=== PATIENT | male | born 1965 | race Caucasian/White ===

== ENCOUNTER 2018-11-20 09:08 | Inpatient (IN) | payer OTHER ==
[2018-11-20 10:10] VITALS: BMI 29.5
--- NOTE | 2018-11-20 13:53 | HP ---
COWS - Scale Resting Pulse: 0= [place] 80 or Below Sweatin=Flushed/Facial Moisture Restless Observation: 0= Sits Still Pupil Size: 0= Normal to Room Light Bone or Joint Aches: 1= Mild Discomfort Runny Nose/ Eye Tearin= Nasal Congestion GI Upset > 30mins: 1= Stomach Cramp Tremor Observation: 1= Tremor Onia, Not Seen Yawning Observation: 2= >3x During Session Anxiety or Irritability: 1=Feels Anxious/Irritable Goose Flesh Skin: 0=Smooth Skin COWS Score: 9 CIWA Score - Admission Criteria OASAS Guidelines: Admission for Medically Managed Detox: Requires at least one of the followin. CIWA greater than 12 2. Seizures within the past 24 hours 3. Delirium tremens within the past 24 hours 4. Hallucinations within the past 24 hours 5. Acute intervention needed for co occurring medical disorder 6. Acute intervention needed for co occurring psychiatric disorder 7. Severe withdrawal that cannot be handled at a lower level of care (continued vomiting, continued diarrhea, abnormal vital signs) requiring intravenous medication and/or fluids 8. Admission [facility] Chief Complaint: I want detox Allergies/Adverse Reactions: Allergies Allergy/AdvReac Type Severity Reaction Status Date / Time No Known Allergies Allergy Verified 11/20/18 11:47 History of Present Illness: 53 y/o male with a long history of heroin addiction presents here for detox. This is pt's first visit but states he had been in other detox centers previously. Utox positive for fentanyl but pt states it must have been laced with his heroin. Hx of Hep C, Hyperthyroidism (states he has not used his med for a month), homelessness. Denies psych hx. Denies past nor current SI/HI Exam Limitations: No Limitations - Ebola screening Have you traveled outside of the country in the last 21 days: No (N) Have you had contact with anyone from an Ebola affected area: No Have you been sick,other than usual withdrawal symptoms: No Do you have a fever: No - Review of Systems Constitutional: No Symptoms Reported EENT: reports: No Symptoms Reported, Dental Problems (missing teeth) Respiratory: reports: No Symptoms reported Cardiac: reports: No Symptoms Reported GI: reports: Abdominal cramping : reports: No Symptoms Reported Musculoskeletal: reports: Back Pain Integumentary: reports: No Symptoms Reported Neuro: reports: No Symptoms reported Endocrine: reports: No Symptoms Reported Hematology: reports: No Symptoms Reported Psychiatric: reports: Orientated x3, Depressed Other Systems: Reviewed and Negative Patient History - Patient Medical History Hx Anemia: No Hx Asthma: No Hx Chronic Obstructive Pulmonary Disease (COPD): No Hx Cancer: No Hx Cardiac Disorders: No Hx Congestive Heart Failure: No Hx Hypertension: No Hx Hypercholesterolemia: No Hx Pacemaker: No HX Cerebrovascular Accident: No Hx Seizures: No Hx Diabetes: No Hx Gastrointestinal Disorders: No Hx Liver Disease: No Hx Genitourinary Disorders: No Hx Sexually Transmitted Disorders: No Hx Renal Disease (ESRD): No Hx Thyroid Disease: Yes (not compliant with meds) Hx Human Immunodeficiency Virus (HIV): No Hx Hepatitis C: Yes (Not treated) Hx Depression: No Hx Suicide Attempt: No (denies ) Hx Bipolar Disorder: No Hx Schizophrenia: No - Patient Surgical History Past Surgical History: No Hx Neurologic Surgery: No Hx Cataract Extraction: No Hx Cardiac Surgery: No Hx Lung Surgery: No Hx Breast Surgery: No Hx Breast Biopsy: No Hx Abdominal Surgery: No Hx Appendectomy: No Hx Cholecystectomy: No Hx Genitourinary Surgery: No Hx Section: No Hx Orthopedic Surgery: No Hx Hysterectomy: No Anesthesia Reaction: No - PPD History Documented Results: Negative w/o proof Implanted On Prior [facility] Admission?: No PPD to be Administered?: Yes - Reproductive History Patient is a Female of Child Bearing Age (11 -55 yrs old): No - Smoking Cessation Smoking history: Current every day smoker Have you smoked in the past 12 months: Yes Aproximately how many cigarettes per day: 10 Initiated information on smoking cessation: Yes 'Breaking Loose' booklet given: 11/20/18 - Substance & Tx. History Hx Alcohol Use: No Hx Substance Use: Yes Substance Use Type: Cocaine, Heroin Hx Substance Use Treatment: Yes ([facility]) - Substances Abused Heroin Route: Injection Frequency: Daily Amount used: $100 Age of first use: 16 Date of Last Use: 11/19/18 Cocaine Route: Inhalation Frequency: Daily Amount used: $100 Age of first use: 16 Date of Last Use: 11/19/18 Family Disease History - Family Disease History Family History: Unremarkable Admission Physical Exam BHS - Vital Signs Vital Signs: Vital Signs - 24 hr 11/20/18 10:07 Temperature 97.8 F Pulse Rate 79 Respiratory 18 Rate Blood Pressure 124/57 L - Physical General Appearance: Yes: Mild Distress HEENTM: Yes: Within Normal Limits, Nasal Congestion Respiratory: Yes: Lungs Clear, No Respiratory Distress, No Accessory Muscle Use Neck: Yes: Trachea in good position, Other (track lowe to L anterior aspect) Breast: Yes: Breast Exam Deferred Cardiology: Yes: Within Normal Limits Abdominal: Yes: Normal Bowel Sounds, Non Tender, Distended Genitourinary: Yes: Within Normal Limits Back: Yes: Within Normal Limits Musculoskeletal: Yes: Within Normal Limits, full range of Motion, Gait Steady, Back pain Extremities: Yes: Normal Capillary Refill, Normal Inspection, Normal Range of Motion Neurological: Yes: Fully Oriented, Alert, Motor Strength 5/5, Normal Mood/Affect , Normal Response Integumentary: Yes: Normal Color, Warm Lymphatic: Yes: Within Normal Limits - Diagnostic (1) Opioid dependence with uncomplicated intoxication Current Visit: Yes Status: Acute (2) Cocaine dependence Current Visit: Yes Status: Chronic (3) History of hepatitis C Current Visit: Yes Status: Chronic (4) Hyperthyroidism Current Visit: Yes Status: Chronic (5) Nicotine dependence Current Visit: Yes Status: Chronic Cleared for Admission [facility] - Detox or Rehab [facility] Level of Care: Medically Managed Detox Regimen/Protocol: Methadone [facility] Breath Alcohol Content Breath Alcohol Content: 0 Urine Drug Screen - Results Drug Screen Negative: No Urine Drug Screen Results: SHREYA-Cocaine, OPI-Opiates, MTD-Methadone, FEN-Fentanyl Inpatient Rehab Admission - Rehab Decision to Admit Inpatient rehab admission?: No
[2018-11-20] MEDS ORDERED: IBUPROFEN 400 MG TABLET (FP) PO PRN (14:07)
[2018-11-20] MEDS ORDERED: MENTHOL/PHENOL 1 EACH UD MM PRN (14:07)
[2018-11-20] MEDS ORDERED: MAG HYDROX/AL HYDROX/SIMETH 30 ML UNIT-DOSE CUP PO PRN (14:07)
[2018-11-20] MEDS ORDERED: ACETAMINOPHEN 325 MG TABLET (FP) PO PRN (14:07)
[2018-11-20] MEDS ORDERED: LOPERAMIDE HCL 2 MG CAPSULE PO PRN (14:07)
[2018-11-20] MEDS ORDERED: MAGNESIUM HYDROX 2400MG/30ML ORAL SUSPENSION 30 ML CUP PO PRN (14:07)
[2018-11-20] MEDS ORDERED: diazePAM 5 MG TABLET PO PRN (14:07)
[2018-11-20] MEDS ORDERED: NICOTINE POLACRILEX 2 MG GUM BC PRN (14:07)
[2018-11-20] MEDS ORDERED: guaiFENesin/D-METHORPHAN HB 10 ML UNIT-DOSE CUPS PO PRN (14:07)
[2018-11-20] MEDS ORDERED: MAGNESIUM CITRATE 300 ML BOTTLE PO PRN (14:07)
[2018-11-20] MEDS ORDERED: P-EPHED 60MG/TRIPROLIDI 2.5MG TABLET PO PRN (14:07)
[2018-11-20] MEDS ORDERED: METHADONE HCL 10 MG TABLET (FOR DETOX USE ONLY) PO ONE ×2 (15:15→23:00)
[2018-11-20] MEDS: NICOTINE 21 MG/24 HOURS TOPICAL PATCH TD SCH (15:21)
--- NOTE | 2018-11-20 16:15 | PN ---
S Progress Note Note: Per RN, ppt stated he is PPD positive, Chest ray ordered
[2018-11-20] MEDS ORDERED: MELATONIN 5 MG TABLETS PO PRN (22:00)
[2018-11-20] MEDS ORDERED: THIAMINE HCL 100 MG TABLET (FP) PO SCH (22:00)
[2018-11-21 06:43] VITALS: TEMP 98.2
[2018-11-21 09:51] VITALS: BP 117/54; PULSE 68
[2018-11-21 09:55] LABS: HEMATOCRIT 33.1 % (35.4-49); HEMOGLOBIN 11.3 GM/dL (11.7-16.9); MCH 33.4 pg (25.7-33.7); MCHC 34.2 g/dl (32.0-35.9); MEAN CELL VOLUME 97.7 fl (80-96); MEAN PLT VOLUME 8.5 fl (7.5-11.1); PLATELET COUNT 205 K/MM3 (134-434); RBC 3.39 M/mm3 (4.00-5.60); WHITE BLOOD COUNT 5.5 K/mm3 (4.0-10.0)
[2018-11-21] MEDS ORDERED: PRENATAL VITAMINS W/ FOLIC ACID TABLET (FP) PO SCH (10:00)
[2018-11-21] MEDS ORDERED: METHADONE HCL 10 MG TABLET (FOR DETOX USE ONLY) PO ONE (10:00)
[2018-11-21 10:07] LABS: ALBUMIN 3.3 g/dl (3.4-5.0); ALK PHOS 50 U/L (45-117); ANION GAP 7 MMOL/L (8-16); BILIRUBIN,TOTAL 0.3 mg/dL (0.2-1); BLOOD UREA NITROGEN 10 mg/dL (7-18); CALCIUM 8.3 mg/dL (8.5-10.1); CHLORIDE 107 mmol/L (98-107); CO2 26 mmol/L (21-32); CREATININE 0.8 mg/dL (0.55-1.3); GLUCOSE,RANDOM 107 mg/dL (74-106); POTASSIUM 3.3 mmol/L (3.5-5.1); SGOT/AST 47 U/L (15-37); SGPT/ALT 37 U/L (13-61); SODIUM 141 mmol/L (136-145); TOT PROT 6.7 g/dl (6.4-8.2)
[2018-11-21] MEDS ORDERED: METHADONE HCL 10 MG TABLET PO SCH (10:15)
[2018-11-21] MEDS ORDERED: METHADONE 40 MG, METHADONE 10 MG PO SCH (10:50)
[2018-11-21] MEDS ORDERED: METHADONE HCL 10 MG TABLET ONE (11:02)
[2018-11-21] MEDS ORDERED: METHADONE HCL 40 MG DISPERSABLE TABLET ONE (11:02)
--- NOTE | 2018-11-21 11:04 | DS ---
[facility] Detox Discharge Summary Admission Date: 11/20/18 Discharge Date: 11/21/18 - History Present History: Cocaine Dependence, Opioid Dependence Additional Comments: PATIENT INITIALLY CAME IN TO [facility] ADMISSION YESTERDAY REQUESTING DETOX FROM [facility]. HOWEVER, PATIENT TODAY NOTES THAT HE HAS BEEN A CLIENT AT [facility] ([place], [place]) AND THAT HIS LAST DAY MEDICATED THERE WAS ON 11/13/2018 (NO INDICATION OF THIS WAS NOTED ON [facility] ADMISSIONS HISTORY AND PHYSICAL. WHEN ASKED, PATIENT ALSO REPORTS THAT HE WISHES TO RETURN THERE TO CONTINUE METHADONE MAINTENANCE GOING FORWARD. THEREFORE, THERE IS NO REASON FOR PATIENT TO REMAIN ON DETOX UNIT ANY FURTHER AT THIS TIME BECAUSE THERE ARE NO SUBSTANCES FOR HIM TO BE DETOXED FROM. PATIENT WILL BE GIVEN 50 MG PO OF METHADONE TODAY (DUE TO LENGTH OF TIME SINCE LAST MEDICATED AT [facility] ) AND THEN WILL BE DISCHARGED FROM DETOX UNIT AND REFERRED IMMEDIATELY BACK TO [facility] FOR FURTHER EVALUATION. WHILE ASSESSED THIS AM, PATIENT REPORTS PAIN ON THE RIGHT SIDE OF HIS TONGUE. VISUAL INSPECTION REVEALED AN ULCER, POSSIBLY A CNANCRE SORE. PRESCRIPTION FOR VALTREX PO AND FOR TOPICAL ANBESOL PRN ORAL PAIN SENT TO [facility] ([place], [place]) FOR AFTERCARE. PATIENT IS HYPOKALEMIC BASED UPON ADMISSION LAB RESULTS, PRESCRIPTION FOR K-DUR ALSO SENT TO [facility]. PATIENT ALSO INITIALLY SCHEDULED FOR CXR THIS AM DUE TO HISTORY OF POSITIVE PPD. PATIENT REFERRED BACK TO MEDICAL PROVIDER AT [facility] FOR FURTHER MEDICAL EVALUATION OF THIS CONDITION AND FOR HISTORY OF THYROID DISEASE AFTER DISCHARGE FROM DETOX UNIT TODAY. PATIENT VERBALIZED UNDERSTANDING OF ALL RECOMMENDATIONS. PATIENT DISCHARGED FROM DETOX UNIT IN STABLE MEDICAL CONDITION. Pertinent Past History: History of Thyroid Disorder, [facility] History of Hep C, Nicotine Dependence. - Physical Exam Results Vital Signs: Vital Signs Temperature 98.2 F 11/21/18 10:26 Pulse Rate 68 11/21/18 10:26 Respiratory Rate 18 11/21/18 10:26 Blood Pressure 117/54 L 11/21/18 10:26 O2 Sat by Pulse Oximetry (%) Pertinent Admission Physical Exam Findings: WITHDRAWAL SYMPTOMS. Laboratory Tests 11/21/18 11/21/18 07:50 07:50 WBC 5.5 RBC 3.39 L Hgb 11.3 L Hct 33.1 L MCV 97.7 H MCH 33.4 MCHC 34.2 RDW 14.0 Plt Count 205 MPV 8.5 Sodium 141 Potassium 3.3 L Chloride 107 Carbon Dioxide 26 Anion Gap 7 L BUN 10 Creatinine 0.8 Creat Clearance w eGFR > 60 Random Glucose 107 H Calcium 8.3 L Total Bilirubin 0.3 AST 47 H ALT 37 Alkaline Phosphatase 50 Total Protein 6.7 Albumin 3.3 L LABS NOTED. RPR RESULT PENDING. - Treatment Hospital Course: Detoxed Safely Patient has Accepted a Rehab Referral to: N/A. SEE 'COMMENTS' SECTION ABOVE. - Medication Discharge Medications: Ambulatory Orders Levothyroxine [Synthroid -] 125 mcg PO DAILY 11/20/18 Methadone [Dolophine -] 80 mg PO DAILY 11/20/18 Benzocaine [Anbesol] 12 ml MM TID PRN #1 bottle 11/21/18 Potassium Chloride 20 meq PO DAILY #5 tablet.er 11/21/18 Valacyclovir HCl [Valtrex] 500 mg PO BID 5 Days #10 tablet 11/21/18 - Diagnosis (1) Opioid dependence with uncomplicated intoxication Current Visit: Yes Status: Acute (2) Cocaine dependence Current Visit: Yes Status: Chronic Qualifiers: Substance use status: uncomplicated Qualified Code(s): F14.20 - Cocaine dependence, uncomplicated (3) History of hepatitis C Current Visit: Yes Status: Chronic (4) Hyperthyroidism Current Visit: Yes Status: Chronic (5) Nicotine dependence Current Visit: Yes Status: Chronic Qualifiers: Nicotine product type: cigarettes Substance use status: uncomplicated Qualified Code(s): F17.210 - Nicotine dependence, cigarettes, uncomplicated - AMA Did Patient Leave Against Medical Advice: No
[2018-11-21] MEDS: NICOTINE 21 MG/24 HOURS TOPICAL PATCH TD SCH (11:06)
--- NOTE | 2018-11-21 11:12 | PN ---
[facility] COWS - Scale Resting Pulse: 0= [place] 80 or Below Sweatin= Chills/Flushing Restless Observation: 1= Difficult to Sit Still Pupil Size: 0= Normal to Room Light Bone or Joint Aches: 2= Severe Diffuse Aches Runny Nose/ Eye Tearin= None GI Upset > 30mins: 2= Nausea/Diarrhea Tremor Observation of Outstretched Hands: 2= Slight Tremor Visible Yawning Observation: 1= 1-2x During Session Anxiety or Irritability: 2=Irritable/Anxious Goose Flesh Skin: 0=Smooth Skin COWS Score: 11 [facility] Progress Note (SOAP) Subjective: Stomach Cramping, Tremors Body Aches, Sweating, Diarrhea, Nausea, Interrupted Sleep. Objective: PATIENT A & O X 2 (UNCERTAIN ABOUT CURRENT DAY / DATE). PATIENT OBSERVED AMBULATING ON UNIT. IN NO ACUTE DISTRESS. PATIENT REPORTS PAIN ON RIGHT SIDE OF TONGUE X APPROX. 1 MONTH. ULCER WITH ERYTHEMATOUS DISCOLORATION NOTED ON RIGHT SIDE OF TONGUE. NO SWELLING OR DISCHARGE NOTED AT SITE. 11/21/18 11:08 Vital Signs Temperature 98.2 F 11/21/18 10:26 Pulse Rate 68 11/21/18 10:26 Respiratory Rate 18 11/21/18 10:26 Blood Pressure 117/54 L 11/21/18 10:26 O2 Sat by Pulse Oximetry (%) Laboratory Tests 11/21/18 11/21/18 07:50 07:50 WBC 5.5 RBC 3.39 L Hgb 11.3 L Hct 33.1 L MCV 97.7 H MCH 33.4 MCHC 34.2 RDW 14.0 Plt Count 205 MPV 8.5 Sodium 141 Potassium 3.3 L Chloride 107 Carbon Dioxide 26 Anion Gap 7 L BUN 10 Creatinine 0.8 Creat Clearance w eGFR > 60 Random Glucose 107 H Calcium 8.3 L Total Bilirubin 0.3 AST 47 H ALT 37 Alkaline Phosphatase 50 Total Protein 6.7 Albumin 3.3 L LABS NOTED. 11/21/18 11:12 Assessment: 11/21/18 11:09 PATIENT REPORTS THAT HE IS CURRENTLY A CLIENT AT [facility] ( [place], [place]). THEREFORE, DETOX NOT ADVISED FOR PATIENT AT THIS TIME. SEE FOLLOWING [facility] DETOX DISCHARGE SUMMARY. Plan: PATIENT TO BE DISCHARGED FROM DETOX UNIT TODAY. SEE FOLLOWING [facility] DETOX DISCHARGE SUMMARY FOR FURTHER INFORMATION.
[2018-11-22] MEDS ORDERED: METHADONE HCL 5 MG TABLET (FOR DETOX USE ONLY) PO ONE (10:00)
[2018-11-23] MEDS ORDERED: METHADONE HCL 5 MG TABLET (FOR DETOX USE ONLY) PO ONE (10:00)
[2018-11-24] MEDS ORDERED: METHADONE HCL 10 MG TABLET (FOR DETOX USE ONLY) PO ONE (10:00)
[2018-11-25] MEDS ORDERED: METHADONE HCL 5 MG TABLET (FOR DETOX USE ONLY) PO ONE (06:00)
== END 2018-11-21 12:30 | disposition home or self-care (01) | DRG 773 ==
LOC: YASAS 09:08 → Y6N 13:25
PROVIDERS: ADMIT Surgery; ATTEND Surgery
PROC: HZ2ZZZZ Detoxification Services for Substance Abuse Treatment (ICD-10-PCS; principal; 2018-11-20)
DX: F11.23 Opioid dependence with withdrawal (principal); F14.20 Cocaine dependence, uncomplicated; F17.210 Nicotine dependence, cigarettes, uncomplicated; E05.90 Thyrotoxicosis, unspecified without thyrotoxic crisis or storm; B18.2 Chronic viral hepatitis C; Z91.14 Patient's other noncompliance with medication regimen
CPT/HCPCS: 36415; 80053; 85027; 86593

== ENCOUNTER 2024-04-29 13:21 | Inpatient (IN) | payer OTHER ==
[2024-04-29 13:54] VITALS: BMI 28.5
[2024-04-29] MEDS ORDERED: NICOTINE POLACRILEX 2 MG LOZENGE BC PRN (14:27)
[2024-04-29] MEDS ORDERED: ACETAMINOPHEN 325 MG TABLET (FP) PO PRN (14:27)
[2024-04-29] MEDS ORDERED: BENZOCAINE/MENTHOL (CHLORASEPTIC ) LOZENGE MM PRN (14:27)
[2024-04-29] MEDS ORDERED: POLYETHYLENE GLYCOL (HEALTHYLAX) 3350 17 GM PACKET PO PRN (14:27)
[2024-04-29] MEDS ORDERED: NALOXONE HCL 0.4 MG/ML VIAL IM PRN (14:27)
[2024-04-29] MEDS ORDERED: NICOTINE POLACRILEX 2 MG GUM BUC PRN (14:27)
[2024-04-29] MEDS ORDERED: BENZONATATE 200 MG CAPSULE PO PRN (14:27)
[2024-04-29] MEDS ORDERED: ONDANSETRON *ODT* 4 MG TABLET SL PRN (14:27)
[2024-04-29] MEDS ORDERED: MAG HYDROX/AL HYDROX/SIMETH 30 ML UNIT-DOSE CUP PO PRN (14:27)
[2024-04-29] MEDS ORDERED: MAGNESIUM HYDROX 2400MG/30ML ORAL SUSPENSION 30 ML CUP PO PRN (14:27)
[2024-04-29] MEDS ORDERED: LOPERAMIDE HCL 2 MG CAPSULE PO PRN (14:27)
[2024-04-29] MEDS ORDERED: DICYCLOMINE HCL 10 MG CAPSULE PO PRN (14:27)
[2024-04-29] MEDS ORDERED: BISMUTH SUBSALICYLATE 524 MG/30 ML PO PRN (14:27)
[2024-04-29] MEDS ORDERED: P-EPHED 60MG/TRIPROLIDI 2.5MG TABLET PO PRN (14:27)
[2024-04-29] MEDS ORDERED: IBUPROFEN 400 MG TABLET (FP) PO PRN (14:27)
[2024-04-29] MEDS ORDERED: NALOXONE (NARCAN) HCL 4 MG/0.1 ML SPRAY NS PRN (14:27)
[2024-04-29] MEDS ORDERED: guaiFENesin 600 MG TABLET.ER (FP) PO PRN (14:27)
[2024-04-29] MEDS: THIAMINE 100 MG TABLET PO SCH (22:50)
[2024-04-29] MEDS: MELATONIN 5 MG TABLETS PO SCH (22:50)
[2024-04-30 09:42] LABS: HEMATOCRIT 33.5 % (35.4-49); HEMOGLOBIN 11.5 GM/dL (11.7-16.9); MCH 33.3 pg (25.7-33.7); MCHC 34.3 g/dl (32.0-35.9); MEAN CELL VOLUME 97.3 fl (80-96); MEAN PLT VOLUME 8.1 fl (7.5-11.1); PLATELET COUNT 180 10^3/uL (134-434); RBC 3.45 M/mm3 (4.00-5.60); RDW 13.8 % (11.9-15.9); WHITE BLOOD COUNT 7.4 K/mm3 (4.0-10.0)
[2024-04-30 09:46] LABS: POTASSIUM 3.7 mmol/L (3.5-5.1)
[2024-04-30 09:51] LABS: CALCIUM 8.1 mg/dL (8.5-10.1)
[2024-04-30 09:52] LABS: ALBUMIN 3.3 g/dl (3.4-5.0)
[2024-04-30 09:55] LABS: CREATININE 0.9 mg/dL (0.55-1.3)
[2024-04-30 09:56] LABS: BILIRUBIN,TOTAL 0.6 mg/dL (0.2-1); TOT PROT 6.5 g/dl (6.4-8.2)
[2024-04-30] MEDS: IBUPROFEN 600 MG TABLET (FP) PO PRN (10:08)
[2024-04-30] MEDS: PRENATAL VITAMINS W/ FOLIC ACID TABLET (FP) PO SCH (10:10)
[2024-04-30] MEDS: METHOCARBAMOL 500 MG TABLET PO PRN (20:29)
[2024-05-01] MEDS: hydrOXYzine PAMOATE 25 MG CAPSULE (FP) PO PRN (22:24)
[2024-05-02 09:22] VITALS: BP 104/65; PULSE 71; RESP 18; TEMP 97.5
== END 2024-05-02 12:56 | disposition other institution (70) | DRG 773 ==
LOC: YASAS 13:21 → Y3N 14:39
PROVIDERS: ADMIT Allergy & Immunology; ATTEND Surgery
PROC: HZ2ZZZZ Detoxification Services for Substance Abuse Treatment (ICD-10-PCS; principal; 2024-04-29)
DX: F11.20 Opioid dependence, uncomplicated (principal); F14.20 Cocaine dependence, uncomplicated; F17.210 Nicotine dependence, cigarettes, uncomplicated; E03.9 Hypothyroidism, unspecified; Z86.19 Personal history of other infectious and parasitic diseases
CPT/HCPCS: 36415; 80053; 80305; 80307; 85027; 86780; 93005; 93010

== ENCOUNTER 2025-06-21 11:51 | Inpatient (IN) | payer OTHER ==
[2025-06-21] MEDS ORDERED: IBUPROFEN 600 MG TABLET (FP) PO PRN (12:59)
[2025-06-21] MEDS ORDERED: METHOCARBAMOL 500 MG TABLET PO PRN (12:59)
[2025-06-21] MEDS ORDERED: NICOTINE POLACRILEX 2 MG GUM BUC PRN (12:59)
[2025-06-21] MEDS ORDERED: POLYETHYLENE GLYCOL (HEALTHYLAX) 3350 17 GM PACKET PO PRN (12:59)
[2025-06-21] MEDS ORDERED: IBUPROFEN 400 MG TABLET (FP) PO PRN (12:59)
[2025-06-21] MEDS ORDERED: guaiFENesin 600 MG TABLET.ER (FP) PO PRN (12:59)
[2025-06-21] MEDS ORDERED: LOPERAMIDE HCL 2 MG CAPSULE PO PRN (12:59)
[2025-06-21] MEDS ORDERED: BENZOCAINE/MENTHOL (CHLORASEPTIC ) LOZENGE MM PRN (12:59)
[2025-06-21] MEDS ORDERED: BENZONATATE 200 MG CAPSULE PO PRN (12:59)
[2025-06-21] MEDS ORDERED: MAGNESIUM HYDROX 2400MG/30ML ORAL SUSPENSION 30 ML CUP PO PRN (12:59)
[2025-06-21] MEDS ORDERED: MAG HYDROX/AL HYDROX/SIMETH 30 ML UNIT-DOSE CUP PO PRN (12:59)
[2025-06-21] MEDS: BUPRENORPHINE/NALOXONE 8 MG/2 MG FILM PACKET SL SCH (17:16)
[2025-06-21] MEDS: MELATONIN 5 MG TABLETS PO SCH (21:46)
[2025-06-21] MEDS: THIAMINE 100 MG TABLET PO SCH (21:46)
[2025-06-21] MEDS: DOXEPIN HCL 25 MG CAPSULE PO SCH (21:47)
[2025-06-22] MEDS: NICOTINE 14 MG/24 HOURS TOPICAL PATCH TD SCH (05:29)
[2025-06-22] MEDS: LEVOTHYROXINE NA 100 MCG TABLET (FP) PO SCH (06:16)
[2025-06-22] MEDS: ESCITALOPRAM OXALATE 10 MG TABLET PO SCH (09:04)
[2025-06-22] MEDS: PRENATAL VITAMINS W/ FOLIC ACID TABLET (FP) PO SCH (09:04)
[2025-06-22] MEDS ORDERED: LEVOTHYROXINE NA 200 MCG TABLET PO SCH (10:00)
[2025-06-26] MEDS: MELATONIN 5 MG TABLETS PO SCH (21:26)
[2025-06-26] MEDS: DOXEPIN HCL 25 MG CAPSULE PO SCH (21:26)
[2025-06-28] MEDS: hydrOXYzine PAMOATE 25 MG CAPSULE (FP) PO PRN (21:40)
[2025-06-29] MEDS ORDERED: LEVOTHYROXINE NA 100 MCG TABLET (FP) PO SCH (09:58)
[2025-06-29] MEDS: BACLOFEN 10 MG TABLET (FP) PO SCH (14:34)
[2025-06-29] MEDS ORDERED: MIRTAZAPINE 15 MG TABLET (FP) PO SCH (22:00)
[2025-06-30] MEDS: LEVOTHYROXINE 25 MCG, LEVOTHYROXINE 200 MCG PO SCH (06:29)
[2025-07-04] MEDS: ACETAMINOPHEN 325 MG TABLET (FP) PO PRN (10:12)
[2025-07-05] MEDS: MAGNESIUM OXIDE 400 MG TABLET (FP) PO SCH (14:15)
[2025-07-10] MEDS: ALBUTEROL SO4 HFA INHALER IH PRN (10:56)
[2025-07-15 05:45] VITALS: PULSE 84; TEMP 97.1
[2025-07-16 06:17] VITALS: BP 136/76; RESP 18
== END 2025-07-16 09:44 | disposition home or self-care (01) | DRG 772 ==
LOC: YASAS 11:51 → Y3NR 11:55 → Y3W 06-22 09:55
PROVIDERS: ADMIT Psychiatry & Neurology Pain Medicine; ATTEND Psychiatry & Neurology Pain Medicine
PROC: HZ42ZZZ Group Counseling for Substance Abuse Treatment, Cognitive-Behavioral (ICD-10-PCS; principal; 2025-06-21)
DX: F11.20 Opioid dependence, uncomplicated (principal); F14.20 Cocaine dependence, uncomplicated; F10.20 Alcohol dependence, uncomplicated; F17.210 Nicotine dependence, cigarettes, uncomplicated; F41.1 Generalized anxiety disorder; F32.A Depression, unspecified; E03.9 Hypothyroidism, unspecified; I10 Essential (primary) hypertension; J44.9 Chronic obstructive pulmonary disease, unspecified; R60.0 Localized edema; Z86.19 Personal history of other infectious and parasitic diseases; Z59.00 Homelessness unspecified
CPT/HCPCS: 36415; 86803; 87522; J0475